=== PATIENT | female | born 2000 | race Caucasian/White ===

== ENCOUNTER 2024-08-28 15:11 | Outpatient (REF) | payer BC, MEDICAID, SELFPAY ==
[2024-08-28 15:12] VITALS: BP 110/73; PULSE 59; RESP 18; TEMP 37; O2SAT 98; BMI 24.5
--- NOTE | 2024-08-28 15:52 | EX.ED.DYSGE1 ---
HPI History of Present Illness Chief Complaint: Occup Expose Informant: patient Narrative Narrative: Patient is 24-year-old female presenting for concern of occupational health exposure. 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 She was attending the delivery when there was a splatter of amniotic fluid. The fluid got all over her and slightly in her right eye and she felt a little bit of moisture on her mouth. She was not wearing a face shield. She found out later that the mother a history of hepatitis C even though reportedly her viral load was negative. She was into the ER per occupational exposure protocol. Denies any medical history. Denies any known history of any blood-borne pathogens. PFSH PFSH Allergy/AdvReac Type Severity Reaction Status Date / Time No Known Allergies Allergy Verified 08/28/24 15:14 ROS ROS ED Constitutional Constitutional ED: Denies chills or fever(s) Eyes Eyes: Denies blurry vision Gastrointestinal Gastrointestinal: Denies nausea or vomiting Integumentary Denies rash EXAM Physical Exam Const Vital Signs: 08/28/24 15:12 Temperature 98.6 F Temperature Source Oral Pulse Rate 59 L Respiratory Rate 18 Blood Pressure 110/73 Blood Pressure Mean 85 Pulse Ox 98 Oxygen Delivery Method Room Air Positive well nourished and well developed General Appearance ED: well developed and NAD HEENT Reports moist mucous membranes Chest Wall inspection of chest normal Resp normal respiratory effort and clear to auscultation bilaterally Cardio regular rate and regular rhythm Neuro oriented x3 Sensorium / Orientation: alert Motor Exam: Negative for general weakness Psych mental status grossly normal Skin no rashes or lesions noted MDM MDM MDM Narrative Medical decision making narrative: Patient evaluated for concern of exposure to possible hepatitis C and healthcare setting. A protocol for patient's testing is performed. Given that the patient reportedly had negative viral load of hepatitis C but had a remote history and it was exposure to amniotic fluid I think this is a low risk exposure I do not think she needs any antiviral prophylaxis. Will follow-up with employee health. Patient agreeable plan of care. 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 Print Language: [place]an Disposition Disposition: Home, Self Care
[2024-08-28 16:12] VITALS: BP 110/73; PULSE 59; RESP 18; TEMP 37; O2SAT 98
[2024-08-28 18:16] LABS: HIV Nonreactive (Nonreactive); Hepatitis B Surface Antigen Nonreactive (Nonreactive); Hepatitis C Antibody Nonreactive (Nonreactive)
== END 2024-08-28 16:13 | disposition home or self-care (01) ==
LOC: ED 15:11
PROVIDERS: PCP Family Medicine; Visit Provider Emergency Medicine
DX: Z77.21 Contact with and (suspected) exposure to potentially hazardous body fluids (principal)
CPT/HCPCS: 86703; 86706; 86803; 87340; 99282